=== PATIENT | male | born 1955 | race Caucasian/White ===

== ENCOUNTER 2017-11-06 14:37 | Inpatient (IN) | payer OTHER ==
[~2017-11-06] VITALS: Ht 172.7 cm; Wt 71.7 kg
--- NOTE | ~2017-11-06 | EKG ---
[address] [place] [address] ELECTROCARDIOGRAM REPORT Name: PURVIALISSON Iverson Room #: 428-P ADM IN M.R.#: [id number] Admission: 11/06/17 Attend Phys: Brijesh Briceno MD Discharge: Date of : 55 Report #: [id number] THIS REPORT FOR: //name// [facility] ED Test Date: 2017-11-06 Test Time: 14:42:37 Pat Name: ALISSON LOJA Department: Room: 428 Gender: M Machine Heel Seat Laster: [facility] : 1955 Requested By: Katya Oscar Order Number: [id number] MD: Benitez Mcneil Measurements Intervals [place] Rate: 119 P: 81 [place]: 170 QRS: 80 QRSD: 97 T: 64 QT: 335 QTc: 472 Interpretive Statements Sinus tachycardia Right atrial abnormality Poor R wave progression No previous ECG available for comparison Electronically Signed On 11-07-2017 8:40:35 CDT by Benitez Mcneil [email or web address] <ELECTRONICALLY SIGNED> By: Benitez Mcneil MD, [facility] 11/07/17 0840 1442 1442 Benitez Mcneil MD, FACC /EPI
--- NOTE | ~2017-11-06 | HC ---
[facility] [place] [address] CONSULTATION Name: ALISSON LOJA Room #: 239-P [facility] IN ..#: [id number] Admission: 11/06/17 Attend Phys: Brijesh Briceno MD Discharge: Date of : 55 Report #: [id number] THIS REPORT FOR: //name// CC: FAM unknown Brijesh Briceno REFERRAL PHYSICIAN: Dr. Briceno. REASON FOR REFERRAL: COPD. HISTORY OF PRESENT ILLNESS: The patient is a 62-year-old white male who was admitted with COPD exacerbation. The patient states that he has been normally followed at [facility]. He continues to smoke about a pack a day. He has a history of alcohol abuse. Since admission, he is much improved. His bronchospasm and dyspnea have abated. Otherwise, denies any chest pain, productive cough, night sweats or chills. PAST MEDICAL HISTORY: Notable for COPD, tobacco abuse, is felt to have emphysema. History of alcohol abuse along with tobacco abuse. PAST SURGICAL HISTORY: Negative. ALLERGIES: MORPHINE, reactions not specified. CURRENT MEDICATIONS: List reviewed. FAMILY HISTORY: Noncontributory. SOCIAL HISTORY: He continues to smoke more than 1 pack a day for most of his life. He drinks heavy, sometimes 1-1/2 liters of vodka per day. REVIEW OF SYSTEMS: As mentioned above, otherwise 10-point system review negative. PHYSICAL EXAMINATION: GENERAL: He is awake, alert, in no distress. VITAL SIGNS: Temperature is 97.5 degrees Fahrenheit, pulse is 100, respiratory rate 16, blood pressure 160/94 mmHg, saturation 99%. HEENT: Normocephalic, atraumatic. NECK: Supple, without lymphadenopathy or thyromegaly. CHEST: Breath sounds are good with few mild expiratory wheezes. Scattered crackles in the bases. CARDIOVASCULAR: Normal S1, S2. There is no murmur or gallop. There is no JVD. There is no carotid bruit. Pulses are 2+/4+ bilaterally. ABDOMEN: Soft, nontender, no organomegaly or masses felt. [facility] [address] [place] [address] CONSULTATION Name: ALISSON LOJA Room #: 239-P ADM IN M.R.#: [id number] Admission: 11/06/17 Attend Phys: Brijesh Briceno MD Discharge: Date of : 55 Report #: [id number] GENITOURINARY: Deferred. RECTAL: Deferred. EXTREMITIES: There is no edema, cyanosis or clubbing. LABORATORY DATA: Chest x-ray shows hyperexpanded lung field, mild left-sided infiltrates. Electrolytes are normal, creatinine is normal. Liver enzymes grossly unremarkable. WBC 18,100; hemoglobin 13.8; platelets are normal. Albumin 3.3. Alcohol level was less than 3 on admission. IMPRESSION: 1. Exacerbation of chronic obstructive pulmonary disease, improved. 2. Tobacco abuse, strongly recommend smoking cessation. 3. Nlaeu-os-ppbkhgs hypoxic respiratory failure, improved. 4. Alcohol abuse. No obvious withdrawal symptoms. RECOMMENDATION AND DISCUSSION: Overall, much improved from pulmonary standpoint. I think it is reasonable to ambulate patient. If he does well, I think the patient could be discharged from pulmonary standpoint. He should be on maintenance bronchodilator therapy. Wean O2 for saturation 90%. Strongly recommended smoke cessation. Thank you for this consultation. <ELECTRONICALLY SIGNED> By: Dorina Espinoza MD 11/10/17 193 09 0424 Dorian Espinoza MD /nt
[2017-11-06 14:38] VITALS: BP 133/92
[2017-11-06 14:49] LABS: BE(vivo) -0.5 mmol/L (-2 to +3); HCO3 23.9 mmol/L (22.0-26.0); PCO2 VENOUS 38.6 mmHg (41.0-51.0); PO2 VENOUS 43.5 mmHg (35.0-45.0)
[2017-11-06 15:43] LABS: HEMOGLOBIN 14.9 gm/dL (14.0-18.0); MCHC 34.8 g/dL (28.0-37.0); MCV 94.9 fL (80.0-100.0); RBC 4.53 mil/uL (4.50-6.00); RDW 17.6 % (10.5-14.5); WBC 16.5 thou/uL (4.0-11.0)
[2017-11-06 16:03] LABS: ANION GAP 8 mmol/L (7-16); CHLORIDE 101 mmol/L (98-107); CO2 27 mmol/L (21-32); POTASSIUM 3.9 mmol/L (3.5-5.1); SODIUM 136 mmol/L (136-145)
[2017-11-06 16:04] LABS: BUN 10 mg/dL (7-18); CALCIUM 8.5 mg/dL (8.5-10.1); CREATININE 0.9 mg/dL (0.7-1.3); GLUCOSE 108 mg/dL (74-106); SGOT 25 U/L (15-37); SGPT 19 U/L (30-65); TOTAL BILIRUBIN 0.7 mg/dL (<0.1-1.0)
[2017-11-06 16:05] LABS: ALBUMIN 3.3 g/dL (3.4-5.0); TOTAL PROTEIN 7.1 g/dL (6.4-8.2); TROPONIN-I <0.06 ng/mL (<0.06)
[2017-11-06 17:58] VITALS: BP 156/87
[2017-11-06 18:53] VITALS: BP 167/96
[2017-11-06 20:04] VITALS: BP 167/92
[2017-11-06] MEDS ORDERED: FLEXERIL PO (23:55)
[2017-11-06] MEDS ORDERED: NEURONTIN 400400 M1 PO (23:57)
[2017-11-06] MEDS ORDERED: INCRUSE ELLI62.5 MCG INH (23:58)
[2017-11-06] MEDS ORDERED: REMERON15 M2 PO (23:59)
[2017-11-07] MEDS ORDERED: VITAMIN B-12500 MCG PO
[2017-11-07] MEDS ORDERED: TYLENOL EXTRA500 MG PO (00:02)
[2017-11-07] MEDS ORDERED: BISMATROL262 MG/15 PO (00:03)
[2017-11-07] MEDS ORDERED: FLOMAX0.4 MG PO (00:06)
[2017-11-07] MEDS ORDERED: VITAMIN D35000 UNIT PO (00:24)
[2017-11-07] MEDS ORDERED: CELECOXIB100 MG PO (00:27)
[2017-11-07] MEDS ORDERED: ADVAIR 500-501 EACH INH (00:27)
[2017-11-07] MEDS ORDERED: MAGOX 400400 MG PO (00:28)
[2017-11-07] MEDS ORDERED: KEPPRA 500 MG500 MG PO (00:28)
[2017-11-07] MEDS ORDERED: ACAMPROSATE CA333 MG PO (00:29)
[2017-11-07] MEDS ORDERED: BUSPIRONE HCL10 MG PO (00:30)
[2017-11-07] MEDS ORDERED: MUCINEX600 MG PO (00:31)
[2017-11-07] MEDS ORDERED: LOPERAMIDE 2 MG2 M1 PO (00:31)
[2017-11-07] MEDS ORDERED: MIRALAX17 GM PO (00:32)
[2017-11-07] MEDS ORDERED: VENTOLIN HFA 1818 GM INH (00:33)
[2017-11-07] MEDS ORDERED: SENNA8.6 MG PO (00:33)
[2017-11-07] MEDS ORDERED: NORCO 7.5-3251 EACH PO (00:35)
[2017-11-07] MEDS ORDERED: BIOFREEZE118 ML TOP (00:35)
[2017-11-07] MEDS ORDERED: IPRATROPIU0.2 MG/1 M INH (00:36)
[2017-11-07 02:35] LABS: AMP/METHAMP Negative (Negative); BARBITURATES Negative (Negative); BENZODIAZEPINES Negative (Negative); COCAINE Negative (Negative); METHADONE Negative (Negative); OPIATES POSITIVE (Negative); PCP Negative (Negative)
[2017-11-07 04:03] LABS: HEMATOCRIT 41.4 % (42.0-52.0); HEMOGLOBIN 13.8 gm/dL (14.0-18.0); MCHC 33.4 g/dL (28.0-37.0); MCV 95.9 fL (80.0-100.0); RBC 4.32 mil/uL (4.50-6.00); RDW 17.9 % (10.5-14.5); WBC 21.7 thou/uL (4.0-11.0)
[2017-11-07 04:14] LABS: CALCIUM 9.2 mg/dL (8.5-10.1); CREATININE 0.9 mg/dL (0.7-1.3); POTASSIUM 4.3 mmol/L (3.5-5.1)
[2017-11-07 08:00] VITALS: BP 159/84
[2017-11-07 19:45] VITALS: BP 144/73
[2017-11-08 05:43] LABS: HEMATOCRIT 40.3 % (42.0-52.0); HEMOGLOBIN 13.8 gm/dL (14.0-18.0); MCH 32.8 pg (26.0-34.0); MCHC 34.2 g/dL (28.0-37.0); MCV 95.7 fL (80.0-100.0); RBC 4.21 mil/uL (4.50-6.00); RDW 17.4 % (10.5-14.5); WBC 18.1 thou/uL (4.0-11.0)
[2017-11-08 05:51] LABS: CREATININE 0.9 mg/dL (0.7-1.3); POTASSIUM 3.8 mmol/L (3.5-5.1)
[2017-11-08 07:41] VITALS: BP 165/94
[2017-11-08 20:00] VITALS: BP 140/86
[2017-11-09 07:20] VITALS: BP 166/93
[2017-11-09 15:40] VITALS: BP 161/94
[2017-11-09 19:30] VITALS: BP 159/91
[2017-11-10] VITALS (15 sets, daily range): BP systolic 149–177; BP diastolic 87–119
[2017-11-11] VITALS (33 sets, daily range): BP systolic 116–182; BP diastolic 74–111
[2017-11-11 05:43] LABS: HEMATOCRIT 43.8 % (42.0-52.0); HEMOGLOBIN 14.7 gm/dL (14.0-18.0); MCH 32.6 pg (26.0-34.0); MCHC 33.6 g/dL (28.0-37.0); MCV 96.9 fL (80.0-100.0); RBC 4.52 mil/uL (4.50-6.00); RDW 17.3 % (10.5-14.5); WBC 11.8 thou/uL (4.0-11.0)
[2017-11-11 05:55] LABS: CALCIUM 9.1 mg/dL (8.5-10.1); CREATININE 0.8 mg/dL (0.7-1.3); POTASSIUM 3.5 mmol/L (3.5-5.1)
[2017-11-12] VITALS (19 sets, daily range): BP systolic 118–164; BP diastolic 79–98
[2017-11-12 05:42] LABS: HEMATOCRIT 41.8 % (42.0-52.0); HEMOGLOBIN 14.3 gm/dL (14.0-18.0); MCH 33.1 pg (26.0-34.0); MCHC 34.2 g/dL (28.0-37.0); MCV 96.6 fL (80.0-100.0); RBC 4.33 mil/uL (4.50-6.00); RDW 16.8 % (10.5-14.5); WBC 9.3 thou/uL (4.0-11.0)
[2017-11-12 05:50] LABS: CALCIUM 8.5 mg/dL (8.5-10.1); CREATININE 0.8 mg/dL (0.7-1.3); MAGNESIUM 1.6 mg/dL (1.8-2.4)
[2017-11-13 04:00] VITALS: BP 134/78
[2017-11-13 05:46] LABS: HEMATOCRIT 42.3 % (42.0-52.0); HEMOGLOBIN 14.7 gm/dL (14.0-18.0); MCH 33.4 pg (26.0-34.0); MCHC 34.8 g/dL (28.0-37.0); RBC 4.41 mil/uL (4.50-6.00); RDW 16.5 % (10.5-14.5); WBC 8.5 thou/uL (4.0-11.0)
[2017-11-13 06:01] LABS: CALCIUM 8.6 mg/dL (8.5-10.1); CREATININE 0.9 mg/dL (0.7-1.3); MAGNESIUM 1.7 mg/dL (1.8-2.4); POTASSIUM 4.3 mmol/L (3.5-5.1)
[2017-11-13 07:47] VITALS: BP 145/85
[2017-11-13 11:53] VITALS: BP 148/97
[2017-11-13 16:43] VITALS: BP 139/86
[2017-11-13 19:13] VITALS: BP 121/79
[2017-11-14 03:57] VITALS: BP 102/91
[2017-11-14 05:20] LABS: HEMATOCRIT 40.4 % (42.0-52.0); HEMOGLOBIN 13.4 gm/dL (14.0-18.0); MCH 32.2 pg (26.0-34.0); MCHC 33.3 g/dL (28.0-37.0); MCV 96.8 fL (80.0-100.0); RBC 4.17 mil/uL (4.50-6.00); RDW 16.5 % (10.5-14.5); WBC 7.1 thou/uL (4.0-11.0)
[2017-11-14 05:31] LABS: CALCIUM 8.7 mg/dL (8.5-10.1); CREATININE 0.9 mg/dL (0.7-1.3); MAGNESIUM 1.7 mg/dL (1.8-2.4); POTASSIUM 4.4 mmol/L (3.5-5.1)
[2017-11-14 07:44] VITALS: BP 123/79
[2017-11-14 11:52] VITALS: BP 150/93
[2017-11-14 16:02] VITALS: BP 115/76
[2017-11-14 20:15] VITALS: BP 118/74
[2017-11-15 05:20] VITALS: BP 138/85
[2017-11-15 05:41] LABS: HEMATOCRIT 39.2 % (42.0-52.0); MCH 32.5 pg (26.0-34.0); MCHC 33.2 g/dL (28.0-37.0); MCV 97.8 fL (80.0-100.0); RBC 4.01 mil/uL (4.50-6.00); RDW 16.4 % (10.5-14.5)
[2017-11-15 05:47] LABS: CALCIUM 8.7 mg/dL (8.5-10.1); CREATININE 1.1 mg/dL (0.7-1.3); MAGNESIUM 1.7 mg/dL (1.8-2.4); POTASSIUM 4.5 mmol/L (3.5-5.1)
[2017-11-15 08:05] VITALS: BP 148/94
[2017-11-15] MEDS ORDERED: LEVAQUIN 500 M500 M1 PO (09:52)
[2017-11-15] MEDS ORDERED: PREDNISONE 20 M20 M1 PO (09:52)
[2017-11-15 10:20] VITALS: BP 148/94
[2017-11-15 12:00] VITALS: BP 148/94
== END 2017-11-15 13:34 | DRG 871 ==
LOC: ER 14:37 → 4E 17:03 → ICU 17:03 → 3W 17:03 → EROBS 17:03 → 4E 18:43 → 3W 11-10 08:23 → ICU 11-10 18:33 → 3W 11-12 17:38
PROVIDERS: Hospitalist; Internal Medicine; Student in an Organized Health Care Education/Training Program
PROC: 5A09357 Assistance with Respiratory Ventilation, Less than 24 Consecutive Hours, Continuous Positive Airway Pressure (ICD-10-PCS; principal; 2017-11-06)
DX: A41.9 Sepsis, unspecified organism (principal); J96.21 Acute and chronic respiratory failure with hypoxia; J44.1 Chronic obstructive pulmonary disease with (acute) exacerbation; G93.40 Encephalopathy, unspecified; F10.239 Alcohol dependence with withdrawal, unspecified; I10 Essential (primary) hypertension; F17.210 Nicotine dependence, cigarettes, uncomplicated; F39 Unspecified mood [affective] disorder; R41.0 Disorientation, unspecified; Z79.899 Other long term (current) drug therapy; Y90.9 Presence of alcohol in blood, level not specified; Z88.5 Allergy status to narcotic agent; Z91.011 Allergy to milk products; J20.9 Acute bronchitis, unspecified
CPT/HCPCS: 10078; 10183; 10879

== ENCOUNTER 2017-11-17 20:35 | Inpatient (IN) | payer OTHER ==
[~2017-11-17] VITALS: Ht 172.7 cm; Wt 81.1 kg
--- NOTE | ~2017-11-17 | 2DMMODE ---
[facility] [place] [employer] [place] [address] 2 D/M-MODE ECHOCARDIOGRAM Name: ALISSON LOJA Room #: 246-P [facility] IN ..#: [id number] Admission: 11/17/17 Attend Phys: Sherif Chau Discharge: Date of : 55 Date of Service: 11/18/17 0904 Report #: [id number] THIS REPORT FOR: //name// APPROVED REPORT Study performed: 11/18/2017 08:02:48 EXAM: Comprehensive 2D, Doppler, and color-flow Echocardiogram Patient Location: ICU Room #: 246 Status: routine BSA: 1.81 HR: 90 bpm BP: 127/73 mmHg Rhythm: NSR Other Information Study Quality: Poor Technically limited study due to lung disease, poor echo windows.. Indications New Onset Afib, syncope. Hx: COPD, ETOH and tobacco abuse. 2D Dimensions RVDd: 39.05 mm IVSd: 10.02 (7-11mm) LVOT Diam: 22.60 (18-24mm) LVDd: 39.63 mm PWd: 9.64 (7-11mm) LVDs: 29.10 (25-40mm) Aortic Root: 35.23 mm Volumes Left Atrial Volume (Systole) Single Plane 4CH: 33.93 mL Aortic Valve AoV Peak Trino.: 0.94 m/s AO Peak Gr.: 3.53 mmHg LVOT Max P.70 mmHg LVOT Max V: 0.82 m/s SAHIL Vmax: 3.51 cm2 Pulmonary Valve PV Peak Trino.: 0.90 m/s PV Peak Gr.: 3.[address] [facility] [address] [place] [address] 2 D/M-MODE ECHOCARDIOGRAM Name: ALISSON LOJA Room #: 246-P ADM IN ..#: [id number] Admission: 11/17/17 Attend Phys: Sherif Chau Discharge: Date of : 55 Date of Service: 11/18/17 0904 Report #: [id number] Tricuspid Valve TR Peak Trino.: 2.95 m/s RAP Estimate: 5.00 mmHg TR Peak Gr.: 34.79 mmHg PA Pressure: 40.00 mmHg Left Ventricle The left ventricle is normal size. Regional wall motion appears grossly normal. There is normal left ventricular wall thickness. Left ventricular systolic function is normal. LVEF is 55%. This study is not technically sufficient to allow evaluation of the LV diastolic function. Right Ventricle Right ventricle is not well visualized but appears grossly normal in size and function. Atria The left atrium size is normal. The right atrium size is normal. Aortic Valve The aortic valve is normal in structure. No aortic regurgitation is present. There is no aortic valvular stenosis. Mitral Valve The mitral valve is normal in structure. There is no mitral valve regurgitation noted. Tricuspid Valve The tricuspid valve is normal in structure. Trace tricuspid regurgitation. Estimated PAP is 40mmHg. Pulmonic Valve Pulmonic valve is not well visualized. Great Vessels The aortic root is normal in size. Ascending aorta is not well visualized. IVC is normal in size and collapses >50% with inspiration. Pericardium There is no pericardial effusion. <Conclusion> Technically limited study LVEF is 55%. [facility] [place] [address] 2 D/M-MODE ECHOCARDIOGRAM Name: ALISSON LOJA Room #: 246-P [facility] IN ..#: [id number] Admission: 11/17/17 Attend Phys: Sherif Chau Discharge: Date of : 55 Date of Service: 11/18/17903 Report #: [id number] Regional wall motion appears grossly normal. The aortic valve is normal in structure. No aortic regurgitation or stenosis The mitral valve is normal in structure. No mitral valve regurgitation noted. Trace tricuspid regurgitation. Estimated pulmonary artery pressure of 40mmHg. There is no pericardial effusion. <ELECTRONICALLY SIGNED> By: Benitez Mcneil MD, [facility] 11/18/17903 3 Benitez Mcneil MD, FACC /INF
--- NOTE | ~2017-11-17 | EKG ---
[address] [address] ELECTROCARDIOGRAM REPORT Name: ALISSON LOJA Room #: 201-P ADM IN M.R.#: [id number] Admission: 11/17/17 Attend Phys: Dc Clarke MD Discharge: Date of : 55 Report #: [id number] THIS REPORT FOR: //name// [facility] Test Date: 2017-11-20 Test Time: 10:37:42 Pat Name: ALISSON LOJA Department: Room: 201 P Gender: M Integrated Logistics Support Manager: vinny : 1955 Requested By: Meg Shepherd Order Number: [id number] MD: Ambrosio Covington Measurements Intervals [place] Rate: 89 P: 77 [place]: 149 QRS: 69 QRSD: 98 T: 67 QT: 382 QTc: 465 Interpretive Statements Sinus rhythm Compared to ECG 11/18/2017 10:19:04 Poor R-wave progression no longer present Electronically Signed On 11-20-2017 16:58:40 CDT by Ambrosio Covington [email or web address] <ELECTRONICALLY SIGNED> By: Ambrosio Covington MD 11/20/17 1658 1037 Marita Covington MD /NICOLAS
--- NOTE | ~2017-11-17 | EKG ---
[address] [place] [address] ELECTROCARDIOGRAM REPORT Name: ALISSON LOJA Room #: 246-P ADM IN M.R.#: [id number] Admission: 11/17/17 Attend Phys: Dc Clarke MD Discharge: Date of : 55 Report #: [id number] THIS REPORT FOR: //name// [facility] Test Date: 2017-11-18 Test Time: 10:19:04 Pat Name: ALISSON LOJA Department: Room: 246 P Gender: M Sugar Presser: WILLIAM : 1955 Requested By: Meg Shepherd Order Number: [id number] MD: Benitez Mcneil Measurements Intervals [place] Rate: 92 P: 80 [place]: 135 QRS: 81 QRSD: 93 T: 74 QT: 378 QTc: 468 Interpretive Statements Sinus rhythm Poor R wave progression Compared to ECG 11/17/2017 21:16:06 Sinus rhythm has replaced atrial fibrillation Electronically Signed On 11-18-2017 16:42:32 CDT by Benitez Mcneil [email or web address] <ELECTRONICALLY SIGNED> By: Benitez Mcneil MD, [facility] 11/18/17 1642 1019 1019 Benitez Mcneil MD, FACC /EPI
--- NOTE | ~2017-11-17 | EKG ---
[address] [place] [address] ELECTROCARDIOGRAM REPORT Name: PURVIALISSON Iverson Room #: 201-P ADM IN M.R.#: [id number] Admission: 11/17/17 Attend Phys: Dc Clarke MD Discharge: Date of : 55 Report #: [id number] THIS REPORT FOR: //name// [facility] Test Date: 2017-11-21 Test Time: 06:52:14 Pat Name: ALISSON LOJA Department: Room: 201 P Gender: M Store Operations Associate: HIPOLITO : 1955 Requested By: Meg Shepherd Order Number: [id number] MD: Benitez Mcneil Measurements Intervals [place] Rate: 74 P: 83 [place]: 151 QRS: 72 QRSD: 104 T: 74 QT: 409 QTc: 454 Interpretive Statements Sinus rhythm No significant abnormality Baseline wander in lead(s) V2 Compared to ECG 11/20/2017 10:37:42 No significant changes Electronically Signed On 11-21-2017 8:41:27 CDT by Benitez Mcneil [email or web address] <ELECTRONICALLY SIGNED> By: Benitez Mcneil MD, [facility] 11/21/17 0841 1 Benitez Mcneil MD, [facility] /EPI
--- NOTE | ~2017-11-17 | EKG ---
[address] [address] ELECTROCARDIOGRAM REPORT Name: ALISSON LOJA Room #: 201-P ADM IN M.R.#: [id number] Admission: 11/17/17 Attend Phys: Dc Clarke MD Discharge: Date of : 55 Report #: [id number] THIS REPORT FOR: //name// [facility] Test Date: 2017-11-19 Test Time: 08:28:48 Pat Name: ALISSON LOJA Department: Room: 201 Gender: M Lock Assembler: MITZI : 1955 Requested By: Meg Shepherd Order Number: [id number] MD: Ambrosio Covington Measurements Intervals [place] Rate: 93 P: 75 [place]: 140 QRS: 57 QRSD: 100 T: 67 QT: 389 QTc: 484 Interpretive Statements Sinus rhythm Borderline low voltage, extremity leads Compared to ECG 11/18/2017 10:19:04 Poor R-wave progression no longer present Electronically Signed On 11-20-2017 16:48:03 CDT by Ambrosio Covington [email or web address] <ELECTRONICALLY SIGNED> By: Ambrosio Covington MD 11/20/17 1648 7 7 Ambrosio Covington MD /NICOLAS
--- NOTE | ~2017-11-17 | HC ---
[facility] [place] [address] CONSULTATION Name: PURVIALISSON Room #: 246-P [facility] IN ..#: [id number] Admission: 11/17/17 Attend Phys: Dc Clarke MD Discharge: Date of : 55 Report #: [id number] THIS REPORT FOR: //name// CC: Dc Clarke Erich Akkulugari DATE OF SERVICE: 11/18/2017 INFECTIOUS DISEASES CONSULTATION REASON FOR CONSULTATION: I was asked to evaluate concerning possible sepsis with hypotension. HISTORY OF PRESENT ILLNESS: The patient was a 62-year-old with underlying COPD, anxiety, depression, seizure disorder and alcohol abuse, who resides at a local custodial. Hospitalized last week with COPD exacerbation and alcohol withdrawal. He was discharged on 11/15/2017 back to his custodial. There, he began to drink again and became inebriated over the last 2 days. Then had 2 episodes of syncope and suspected seizures. Brought back into the Emergency Room, where he was afebrile, but he was hypotensive. Required several liters of saline for resuscitation. He was found to be in atrial fibrillation with rapid ventricular response. No further seizure issues. Mental status has improved. He has had no further seizure activity. Appetite has been good. No diarrhea, no dysuria. No rashes or decubiti. No cough or sputum production. No pleuritic chest pain. No hemoptysis. No abdominal pain. REVIEW OF SYSTEMS: A 10-point review of systems was otherwise negative. PAST MEDICAL HISTORY: Seizure disorder, COPD, emphysema, depression, anxiety, paranoia, PTSD, on disability. ALLERGIES: MILK AND MORPHINE. MEDICATIONS: He was on prednisone and Levaquin following his dismissal 3 days ago. Also, on Flexeril, Neurontin, Remeron, vitamin B12, Tylenol, Flomax, Advair, celecoxib, Keppra, mag oxide, acamprosate calcium, buspirone, Imodium, Mucinex, MiraLax, Ventolin inhaler, Biofreeze, hydrocodone and Atrovent. FAMILY HISTORY: Noncontributory. SOCIAL HISTORY: He is a smoker of cigarettes, alcohol use. He has been institutionalized now in a custodial. PHYSICAL EXAMINATION: VITAL SIGNS: Afebrile, hemodynamically stable. He converted to normal sinus. He is on vasopressors and IV fluids. [facility] [address] [place] [address] CONSULTATION Name: ALISSON LOJA Room #: 246-P [facility] IN .R.#: [id number] Admission: 11/17/17 Attend Phys: Dc Clarke MD Discharge: Date of : 55 Report #: [id number] GENERAL: He is alert, cooperative and pleasant, in no acute distress. He is on oxygen per nasal cannula. SKIN: Without rash or decubitus. No palpable adenopathy. HEENT: Eyes nonicteric. Mouth without lesions. Dentition in poor repair. NECK: Supple. BACK: Midline. No percussion tenderness. LUNGS: Clear. HEART: Regular, without murmur. ABDOMEN: Soft and nontender. No hepatosplenomegaly or mass. GENITOURINARY: External genitalia without lesion or rash. EXTREMITIES: No cyanosis or edema. Dystrophic left toenail. NEUROLOGICAL EXAMINATION: Nonfocal with normal cranial nerves and strength throughout. He did have some peripheral neuropathy findings with decreased sensation in his feet. PSYCHIATRIC: Mood was normal. No anxiety or depression exhibited this morning. LABORATORY DATA: Electrocardiogram: Atrial fibrillation. Blood cultures negative to date. Lactic acid 1.2. Procalcitonin less than 0.5. Folate 10, B12 at 565. TSH 2.6. INR 1. GGTP 33. Drug screen positive for opiates. Lactic acid on admission was 2.7. Sodium 141, potassium 3, bicarbonate 28 and creatinine 1.1. Alcohol level 138. CT head negative. CBC: Hemoglobin 14, white count 14, platelet count 246,000, neutrophils 77% and lymphocytes 12%. Chest x-ray, left lower lobe infiltrate without associated effusion. IMPRESSION AND PLAN: A 62-year-old with alcohol withdrawal, possible seizures, atrial fibrillation with rapid ventricular response and hypotension. Some of this may have been fluid depletion. He has a leukocytosis. Chest x-ray shows a new left lower lobe infiltrate in the setting of COPD. No evidence of intra-abdominal infection. Would recommend continuing antibiotic coverage for healthcare-associated aspiration pneumonitis in the left lung. We will need followup chest x-ray. The patient is unable to expectorate. We will check urinalysis. Follow up laboratory studies including CBC and chemistry. Serial chest x-rays. Seizure precautions. Counseling for alcohol abuse. <ELECTRONICALLY SIGNED> By: Manolo Salgado MD 11/18/17 1337 0917 1252 Manolo Salgado MD /nt
--- NOTE | ~2017-11-17 | EKG ---
[address] [address] ELECTROCARDIOGRAM REPORT Name: PURVIALISSON Zayra Room #: 246-P ADM IN M.R.#: [id number] Admission: 11/17/17 Attend Phys: Dc Clarke MD Discharge: Date of : 55 Report #: [id number] THIS REPORT FOR: //name// [facility] ED Test Date: 2017-11-17 Test Time: 21:16:06 Pat Name: ALISSON LOJA Department: Room: 246 Gender: M Petrographer: nelia : 1955 Requested By: Reuben Green Order Number: [id number] MD: Ambrosio Covington Measurements Intervals [place] Rate: 150 P: [place]: QRS: 83 QRSD: 87 T: 67 QT: 297 QTc: 470 Interpretive Statements Atrial fibrillation Borderline right axis deviation Low voltage, precordial leads Minimal ST depression, inferior leads Compared to ECG 11/06/2017 14:42:37 Electronically Signed On 11-18-2017 8:21:09 CDT by Ambrosio Covington [email or web address] <ELECTRONICALLY SIGNED> By: Ambrosio Covington MD 11/18/17 08 15 15 Ambrosio Covington MD /NICOLAS
[~2017-11-17 20:35] MED LIST: ACAMPROSATE CA333 MG PO; ADVAIR 500-501 EACH INH; BIOFREEZE118 ML TOP; BISMATROL262 MG/15 PO; BUSPIRONE HCL10 MG PO; CELECOXIB100 MG PO; FLEXERIL PO; FLOMAX0.4 MG PO; INCRUSE ELLI62.5 MCG INH; IPRATROPIU0.2 MG/1 M INH; KEPPRA 500 MG500 MG PO; LEVAQUIN 500 M500 M1 PO; LOPERAMIDE 2 MG2 M1 PO; MAGOX 400400 MG PO; MIRALAX17 GM PO; MUCINEX600 MG PO; NEURONTIN 400400 M1 PO; NORCO 7.5-3251 EACH PO; PREDNISONE 20 M20 M1 PO; REMERON15 M2 PO; SENNA8.6 MG PO; TYLENOL EXTRA500 MG PO; VENTOLIN HFA 1818 GM INH; VITAMIN B-12500 MCG PO; VITAMIN D35000 UNIT PO
[2017-11-17 20:38] VITALS: BP 79/53
[2017-11-17 21:57] LABS: ABSOLUTE NEUTROPHILS 10.9 thou/uL (1.4-8.2); BASOPHILS 0.3 % (0.0-2.0); EOSINOPHILS 0.4 % (0.0-3.0); HEMOGLOBIN 14.1 gm/dL (14.0-18.0); MCH 33.1 pg (26.0-34.0); MCHC 34.5 g/dL (28.0-37.0); MONOCYTES 10.3 % (1.0-8.0); PLATELET COUNT 246 thou/uL (150-400); RBC 4.27 mil/uL (4.50-6.00); RDW 16.6 % (10.5-14.5); WBC 14.1 thou/uL (4.0-11.0)
[2017-11-17 22:05] LABS: ANION GAP 11 mmol/L (7-16); BUN 15 mg/dL (7-18); CALCIUM 8.7 mg/dL (8.5-10.1); CHLORIDE 102 mmol/L (98-107); CO2 28 mmol/L (21-32); CREATININE 1.1 mg/dL (0.7-1.3); GLUCOSE 94 mg/dL (74-106); SODIUM 141 mmol/L (136-145)
[2017-11-17 22:14] LABS: TROPONIN-I <0.06 ng/mL (<0.06)
[2017-11-17 22:36] LABS: AMP/METHAMP Negative (Negative); BARBITURATES Negative (Negative); BENZODIAZEPINES Negative (Negative); COCAINE Negative (Negative); METHADONE Negative (Negative); OPIATES POSITIVE (Negative); PCP Negative (Negative)
[2017-11-17 23:36] VITALS: BP 85/53
[2017-11-17 23:55] VITALS: BP 83/51
[2017-11-18] VITALS (56 sets, daily range): BP systolic 68–148; BP diastolic 32–85
[2017-11-18 00:10] LABS: MAGNESIUM 1.6 mg/dL (1.8-2.4); PHOSPHORUS 3.5 mg/dL (2.5-4.9)
[2017-11-18 00:37] LABS: APTT 26.8 Seconds (24.5-32.8); PROTIME 9.9 Seconds (9.3-11.4)
[2017-11-18 01:07] LABS: FOLIC ACID 10.1 ng/mL (8.6-58.9)
[2017-11-18 10:55] LABS: URINE BILIRUBIN NEGATIVE (Negative); URINE BLOOD NEGATIVE (Negative); URINE CLARITY CLEAR; URINE COLOR YELLOW; URINE GLUCOSE-RANDOM* NEGATIVE (Negative); URINE KETONES NEGATIVE (Negative); URINE LEUKOCYTES-REFLEX NEGATIVE (Negative); URINE NITRITE-REFLEX NEGATIVE (Negative); URINE PROTEIN (DIPSTICK) NEGATIVE (Negative); URINE SPECIFIC GRAVITY 1.015 (1.005-1.035); URINE UROBILINOGEN 0.2 E.U./dl (0.2-1.0)
[2017-11-19] VITALS (20 sets, daily range): BP systolic 111–161; BP diastolic 55–110
[2017-11-19 03:21] LABS: ABSOLUTE NEUTROPHILS 12.3 thou/uL (1.4-8.2); BASOPHILS 0.2 % (0.0-2.0); HEMATOCRIT 35.5 % (42.0-52.0); LYMPHOCYTES 1.2 % (24.0-44.0); MCH 32.1 pg (26.0-34.0); MCHC 33.4 g/dL (28.0-37.0); MCV 95.9 fL (80.0-100.0); MONOCYTES 1.1 % (1.0-8.0); PLATELET COUNT 212 thou/uL (150-400); POLYS 97.5 % (36.0-66.0); RDW 15.8 % (10.5-14.5); WBC 12.6 thou/uL (4.0-11.0)
[2017-11-19 03:27] LABS: HEMOGLOBIN 11.9 gm/dL (14.0-18.0)
[2017-11-19 03:32] LABS: CALCIUM 7.4 mg/dL (8.5-10.1); CREATININE 0.9 mg/dL (0.7-1.3); MAGNESIUM 1.3 mg/dL (1.8-2.4)
[2017-11-20 00:16] VITALS: BP 142/88
[2017-11-20 04:22] VITALS: BP 117/72
[2017-11-20 06:04] LABS: ABSOLUTE NEUTROPHILS 11.9 thou/uL (1.4-8.2); BASOPHILS 0.1 % (0.0-2.0); HEMATOCRIT 34.5 % (42.0-52.0); HEMOGLOBIN 11.8 gm/dL (14.0-18.0); LYMPHOCYTES 2.1 % (24.0-44.0); MCH 33.2 pg (26.0-34.0); MCHC 34.1 g/dL (28.0-37.0); MCV 97.6 fL (80.0-100.0); MONOCYTES 4.3 % (1.0-8.0); PLATELET COUNT 222 thou/uL (150-400); POLYS 93.5 % (36.0-66.0); RBC 3.54 mil/uL (4.50-6.00); RDW 16.2 % (10.5-14.5); WBC 12.7 thou/uL (4.0-11.0)
[2017-11-20 06:15] LABS: CALCIUM 7.9 mg/dL (8.5-10.1); CREATININE 0.9 mg/dL (0.7-1.3)
[2017-11-20 07:10] VITALS: BP 127/77
[2017-11-20 11:30] VITALS: BP 134/85
[2017-11-20 15:15] VITALS: BP 140/84
[2017-11-20 19:11] VITALS: BP 127/75
[2017-11-21 04:24] LABS: ABSOLUTE NEUTROPHILS 10.4 thou/uL (1.4-8.2); BASOPHILS 0.3 % (0.0-2.0); EOSINOPHILS 0.2 % (0.0-3.0); HEMATOCRIT 35.5 % (42.0-52.0); LYMPHOCYTES 6.4 % (24.0-44.0); MCH 32.6 pg (26.0-34.0); MCHC 33.8 g/dL (28.0-37.0); MCV 96.4 fL (80.0-100.0); MONOCYTES 10.2 % (1.0-8.0); PLATELET COUNT 229 thou/uL (150-400); POLYS 82.9 % (36.0-66.0); RBC 3.68 mil/uL (4.50-6.00); RDW 16.2 % (10.5-14.5); WBC 12.6 thou/uL (4.0-11.0)
[2017-11-21 04:34] VITALS: BP 131/85
[2017-11-21 04:37] LABS: CALCIUM 7.7 mg/dL (8.5-10.1); CREATININE 0.9 mg/dL (0.7-1.3); MAGNESIUM 1.5 mg/dL (1.8-2.4); POTASSIUM 3.6 mmol/L (3.5-5.1)
[2017-11-21 07:15] VITALS: BP 144/85
[2017-11-21 11:40] VITALS: BP 139/86
[2017-11-21] MEDS ORDERED: BAYER CHEWABLE81 MG PO (14:39)
[2017-11-21] MEDS ORDERED: PEPCID20 MG PO (14:39)
[2017-11-21] MEDS ORDERED: TUMS PO (14:39)
[2017-11-21] MEDS ORDERED: TOPROL XL25 MG PO (14:39)
[2017-11-21] MEDS ORDERED: VITAMIN B-1100 M2 PO (14:39)
[2017-11-21] MEDS ORDERED: RISPERIDONE 1 MG1 MG PO (14:39)
[2017-11-21] MEDS ORDERED: AUGMENTIN 875-1 EACH PO (14:39)
[2017-11-21] MEDS ORDERED: PRENATAL PO (14:39)
[2017-11-21] MEDS ORDERED: FOLIC ACID1 MG PO (14:39)
== END 2017-11-21 18:25 | disposition home health service (06) | DRG 871 ==
LOC: ER 20:35 → EROBS 22:31 → ICU 22:31 → 2N 11-19 17:25
PROVIDERS: Emergency Medicine; Family Medicine; Nurse Practitioner Family; Specialist
DX: A41.9 Sepsis, unspecified organism (principal); J18.9 Pneumonia, unspecified organism; J96.21 Acute and chronic respiratory failure with hypoxia; J44.9 Chronic obstructive pulmonary disease, unspecified; F32.9 Major depressive disorder, single episode, unspecified; F41.9 Anxiety disorder, unspecified; F17.210 Nicotine dependence, cigarettes, uncomplicated; F43.10 Post-traumatic stress disorder, unspecified; I48.91 Unspecified atrial fibrillation; E86.0 Dehydration; R65.20 Severe sepsis without septic shock; Y95 Nosocomial condition; G40.909 Epilepsy, unspecified, not intractable, without status epilepticus; F22 Delusional disorders; F10.120 Alcohol abuse with intoxication, uncomplicated; Z71.41 Alcohol abuse counseling and surveillance of alcoholic; Z87.820 Personal history of traumatic brain injury; Z99.81 Dependence on supplemental oxygen; Z23 Encounter for immunization; Z71.6 Tobacco abuse counseling; Z79.51 Long term (current) use of inhaled steroids; Z79.899 Other long term (current) drug therapy; Z88.5 Allergy status to narcotic agent; Z91.011 Allergy to milk products; F10.129 Alcohol abuse with intoxication, unspecified
CPT/HCPCS: 10078; 10081; 27000

== ENCOUNTER 2018-01-26 07:20 | Emergency (ER) | payer OTHER ==
[~2018-01-26] VITALS: Ht 172.7 cm; Wt 63.5 kg
--- NOTE | ~2018-01-26 | EKG ---
[place] [address] [facility] [place] [address] ELECTROCARDIOGRAM REPORT Name: ALISSON LOJA Zayra [id number] Admission: 01/26/18 Attend Phys: Discharge: Date of : 55 Report #: [id number] THIS REPORT FOR: //name// [facility] ED Test Date: 2018-01-26 Test Time: 07:23:05 Pat Name: ALISSON LOJA Department: Room: Gender: M Investigator [employer]: : 1955 Requested By: Reuben Green Order Number: [id number] MD: Benitez Mcneil Measurements Intervals [place] Rate: 108 P: 84 MD: 173 QRS: 78 QRSD: 98 T: 54 QT: 383 QTc: 514 Interpretive Statements Sinus tachycardia Nonspecific ST segment abnormality Prolonged QT interval Compared to ECG 11/21/2017 06:52:14 Prolonged QT interval now present ST and T wave abnormality is new Electronically Signed On 01-26-2018 8:42:10 BAKERY MANAGER by Benitez Mcneil [email or web address] <ELECTRONICALLY SIGNED> By: Benitez Mcneil MD, [facility] 01/26/18 0842 0723 2 Benitez Mcneil MD, FACC /EPI
[~2018-01-26 07:20] MED LIST changes: +AUGMENTIN 875-1 EACH PO; +BAYER CHEWABLE81 MG PO; +FOLIC ACID1 MG PO; +PEPCID20 MG PO; +PRENATAL PO; +RISPERIDONE 1 MG1 MG PO; +TOPROL XL25 MG PO; +TUMS PO; +VITAMIN B-1100 M2 PO
[2018-01-26 07:50] LABS: ANION GAP 11 mmol/L (7-16); BUN 6 mg/dL (7-18); CALCIUM 6.4 mg/dL (8.5-10.1); CHLORIDE 105 mmol/L (98-107); CO2 22 mmol/L (21-32); CREATININE 0.5 mg/dL (0.7-1.3); GLUCOSE 88 mg/dL (74-106); SODIUM 138 mmol/L (136-145)
[2018-01-26 07:51] LABS: POTASSIUM 3.2 mmol/L (3.5-5.1)
[2018-01-26 07:54] LABS: ABSOLUTE NEUTROPHILS 7.2 thou/uL (1.4-8.2); BASOPHILS 0.9 % (0.0-2.0); EOSINOPHILS 0.2 % (0.0-3.0); HEMATOCRIT 40.6 % (42.0-52.0); LYMPHOCYTES 7.1 % (24.0-44.0); MCH 33.8 pg (26.0-34.0); MCHC 34.4 g/dL (28.0-37.0); MCV 98.3 fL (80.0-100.0); MONOCYTES 8.2 % (1.0-8.0); PLATELET COUNT 188 thou/uL (150-400); POLYS 83.6 % (36.0-66.0); RBC 4.13 mil/uL (4.50-6.00); RDW 17.3 % (10.5-14.5); WBC 8.6 thou/uL (4.0-11.0)
[2018-01-26 07:59] LABS: TROPONIN-I <0.06 ng/mL (<0.06)
[2018-01-26] MEDS ORDERED: REMERON15 M2 PO (08:44)
[2018-01-26] MEDS ORDERED: SENNA8.6 MG PO (08:44)
[2018-01-26] MEDS ORDERED: NORCO 7.5-3251 EACH PO (08:45)
[2018-01-26] MEDS ORDERED: CELEBREX 200 M200 M1 PO (08:47)
[2018-01-26] MEDS ORDERED: BISMATROL262 MG/15 PO (08:47)
[2018-01-26] MEDS ORDERED: ACAMPROSATE CA333 MG PO (08:51)
[2018-01-26 14:30] VITALS: BP 156/92
[2018-01-27] MEDS ORDERED: POTASSIUM20 PO (18:33)
[2018-01-27] MEDS ORDERED: MAG-OXIDE400 MG PO (18:33)
[2018-01-27] MEDS ORDERED: NORFLEX100 MG PO (18:33)
[2018-01-27] MEDS ORDERED: ACETAMINOPHEN-1 EAC1 PO (18:33)
== END 2018-01-26 14:57 | disposition home or self-care (01) ==
LOC: ER 07:20
PROVIDERS: Emergency Medicine
DX: R07.89 Other chest pain (principal); R00.0 Tachycardia, unspecified; R60.0 Localized edema; F17.210 Nicotine dependence, cigarettes, uncomplicated; J44.9 Chronic obstructive pulmonary disease, unspecified; F32.9 Major depressive disorder, single episode, unspecified; F41.9 Anxiety disorder, unspecified; Z88.5 Allergy status to narcotic agent; Z91.011 Allergy to milk products

== ENCOUNTER → 2018-01-27 | Emergency (ER) | payer OTHER ==
[~2018-01-27] VITALS: Ht 172.7 cm; Wt 65.8 kg
[~2018-01-27] MED LIST changes: +ACETAMINOPHEN-1 EAC1 PO; +CELEBREX 200 M200 M1 PO; +MAG-OXIDE400 MG PO; +NORFLEX100 MG PO; +POTASSIUM20 PO
--- NOTE | ~2018-01-27 | EKG ---
[address] [employer] [place] [address] ELECTROCARDIOGRAM REPORT Name: ALISSON LOJA [id number] Admission: 01/27/18 Attend Phys: Discharge: Date of : 55 Report #: [id number] THIS REPORT FOR: //name// [facility] ED Test Date: 2018-01-27 Test Time: 15:21:40 Pat Name: ALISSON LOJA Department: Room: Gender: M Electrical Controls Technician: KFRIEDT : 1955 Requested By: Manolo Tubbs Order Number: [id number] MD: Ambrosio Covington Measurements Intervals [place] Rate: 95 P: 78 [place]: 155 QRS: 70 QRSD: 100 T: 31 QT: 385 QTc: 484 Interpretive Statements Sinus rhythm Low voltage, precordial leads Borderline repolarization abnormality Electronically Signed On 01-27-2018 20:18:55 ATHLETIC EQUIPMENT MANAGER by Ambrosio Covington [email or web address] <ELECTRONICALLY SIGNED> By: Ambrosio Covington MD 01/27/182017 1521 1521 Ambrosio Covington MD /EPI
[2018-01-27 17:16] LABS: HEMATOCRIT 39.6 % (42.0-52.0); HEMOGLOBIN 13.7 gm/dL (14.0-18.0); MCH 34.3 pg (26.0-34.0); MCHC 34.5 g/dL (28.0-37.0); MCV 99.3 fL (80.0-100.0); PLATELET COUNT 197 thou/uL (150-400); RBC 3.99 mil/uL (4.50-6.00); RDW 17.3 % (10.5-14.5); WBC 10.4 thou/uL (4.0-11.0)
[2018-01-27 17:29] LABS: ANION GAP 13 mmol/L (7-16); BUN 3 mg/dL (7-18); CHLORIDE 96 mmol/L (98-107); CO2 28 mmol/L (21-32); CREATININE 0.7 mg/dL (0.7-1.3); GLUCOSE 83 mg/dL (74-106); SODIUM 137 mmol/L (136-145)
[2018-01-27 17:30] LABS: CALCIUM 8.9 mg/dL (8.5-10.1)
[2018-01-27 17:37] LABS: ABSOLUTE NEUTROPHILS 7.8 thou/uL (1.4-8.2); ALBUMIN 3.3 g/dL (3.4-5.0); MAGNESIUM 1.3 mg/dL (1.8-2.4); SGOT 24 U/L (15-37); SGPT 19 U/L (30-65); TOTAL BILIRUBIN 0.8 mg/dL (<0.1-1.0); TROPONIN-I <0.06 ng/mL (<0.06)
[2018-01-27 17:38] LABS: ANISOCYTOSIS 1+
[2018-01-27 22:19] VITALS: BP 147/87
== END ==
LOC: ER 14:37
PROVIDERS: Emergency Medicine
DX: E87.6 Hypokalemia (principal); E83.42 Hypomagnesemia; R07.89 Other chest pain; M54.42 Lumbago with sciatica, left side; G89.29 Other chronic pain; F17.210 Nicotine dependence, cigarettes, uncomplicated; J44.9 Chronic obstructive pulmonary disease, unspecified; F32.9 Major depressive disorder, single episode, unspecified; F41.9 Anxiety disorder, unspecified; Z88.5 Allergy status to narcotic agent; Z91.011 Allergy to milk products